=== PATIENT | female | born 1975 | race Caucasian/White ===

== ENCOUNTER 2021-12-20 23:36 | Emergency (ER) | payer MEDICAID ==
[~2021-12-20] VITALS: Ht 167.6 cm; Wt 104.3 kg
[2021-12-20] MEDS ORDERED: OMEPRAZOLE20 MG (23:50)
[2021-12-20] MEDS ORDERED: HYDROCHLOROTH12.5 M1 (23:50)
[2021-12-20] MEDS ORDERED: LEVOTHYROXINE13 MCG (23:51)
[2021-12-20] MEDS ORDERED: NAPROXEN250 MG (23:51)
[2021-12-20] MEDS ORDERED: SIMVASTATIN10 MG (23:51)
[2021-12-20] MEDS ORDERED: LOMAIRA8 MG (23:51)
[2021-12-20] MEDS ORDERED: HYDROXYZINE HCL25 MG (23:51)
[2021-12-21] MEDS ORDERED: ULTRAM50 MG PO (00:24)
--- OUTSIDE RECORDS SUMMARY | 2021-12-21 00:42 | XMS ---
PreManage Notification: GALLITO SLATER Security Prekindergarten Teacher Events No recent Security Events currently on file CRITERIA MET - [place] CARE PROVIDERS [facility] Current PHONE: Unknown [facility] [place] INTERNAL PHONE: Unknown STEFFANY CEDENO Flight Surveyor/Dry Chain Puller Current [facility] CARE TEAM PHONE: Unknown Kristen has no Care Guidelines for this patient. E.D. VISIT COUNT (12 MO.) [address] [facility] [address] [place] [address] KASSY Mejia TOTAL 3 NOTE: Visits indicate total known visits. ED/UCC VISIT TRACKING (12 MO.) 12/20/2021 23:38 [facility] [place] TYPE: Emergency COMPLAINT: - ARM INJURY 05/17/2021 16:19 [facility] [place] TYPE: Emergency DIAGNOSES: - Fatigue - Unspecified abdominal pain - Headache (Adult - Recurrent Or Known Dx Migraines) - Viral intestinal infection, unspecified - Migraine, unspecified, not intractable, with status migrainosus - Dizziness 05/13/2021 10:11 [facility] [place] TYPE: Emergency COMPLAINT: - Unspecified abdominal pain DIAGNOSES: 1. Unspecified abdominal pain 2. Anxiety disorder, unspecified 3. Allergy status to sulfonamides 4. Allergy status to other antibiotic agents 5. Radiographic dye allergy status INPATIENT VISIT TRACKING (12 MO.) No inpatient visits to display in this time frame [email or web address]
== END 2021-12-21 00:50 | disposition home or self-care (01) ==
LOC: ED 23:36
DX: S63.92XA Sprain of unspecified part of left wrist and hand, initial encounter (principal); X58.XXXA Exposure to other specified factors, initial encounter; E78.00 Pure hypercholesterolemia, unspecified; E03.9 Hypothyroidism, unspecified; I10 Essential (primary) hypertension; Z88.2 Allergy status to sulfonamides; Z88.0 Allergy status to penicillin; Z88.1 Allergy status to other antibiotic agents; Z91.041 Radiographic dye allergy status; Z79.899 Other long term (current) drug therapy
CPT/HCPCS: 73130; 96372; 99283-25; A9270; J1885

== ENCOUNTER 2022-12-17 18:58 | Emergency (ER) | payer MEDICAID ==
[~2022-12-17] VITALS: Ht 167.6 cm; Wt 104.3 kg
[~2022-12-17 18:58] MED LIST: HYDROCHLOROTH12.5 M1; HYDROXYZINE HCL25 MG; LEVOTHYROXINE13 MCG; LOMAIRA8 MG; NAPROXEN250 MG; OMEPRAZOLE20 MG; SIMVASTATIN10 MG; ULTRAM50 MG PO
--- OUTSIDE RECORDS SUMMARY | 2022-12-17 19:03 | XMS ---
PreManage Notification: GALLITO SLATER Security Bulk Picker Events No recent Security Events currently on file CRITERIA MET - PDMP CARE PROVIDERS GRETCHEN MENDOSA [facility] Current PHONE: Unknown [facility] [place] INTER[facility] PHONE: [phone] STEFFANY CEDENO Balloon Tester/Robotic Machine Operator Current [facility] CARE TEAM PHONE: Unknown Kristen has no Care Guidelines for this patient. E.D. VISIT COUNT (12 MO.) 1 [facility] 1 [facility] 2 KASSY Mejia TOTAL 4 NOTE: Visits indicate total known visits. ED/UCC VISIT TRACKING (12 MO.) 12/17/2022 19:00 [facility] [place] TYPE: Emergency COMPLAINT: - N/V 10/17/2022 17:59 [facility] [place] TYPE: Emergency DIAGNOSES: - Other specified postprocedural states - Pain in right shoulder - Radiculopathy, cervical region - Neck Pain - Post-op Problem 04/25/2022 12:24 [facility] [place] TYPE: Emergency COMPLAINT: - Cough, unspecified - Shortness of breath - Other chest pain DIAGNOSES: 1. Acute bronchospasm 2. Hemoptysis 3. Contact with and (suspected) exposure to COVID-19 4. Hypothyroidism, unspecified 12/20/2021 23:[address] [facility] [place] TYPE: Emergency COMPLAINT: - ARM INJURY DIAGNOSES: - Allergy status to other antibiotic agents - Allergy status to penicillin - Allergy status to sulfonamides - Essential (primary) hypertension - Exposure to other specified factors, initial encounter - Hypothyroidism, unspecified - Other mcfp (current) drug therapy - Pure hypercholesterolemia, unspecified - Radiographic dye allergy status - Sprain of unspecified part of left wrist and hand, initial encounter INPATIENT VISIT TRACKING (12 MO.) No inpatient visits to display in this time frame [email or web address]
[2022-12-17] MEDS ORDERED: METHOCARBAMOL750 MG PO (20:19)
[2022-12-17] MEDS ORDERED: PRAVASTATIN SOD20 MG PO (20:19)
[2022-12-18 00:04] VITALS: BP 157/110
== END 2022-12-18 00:05 | disposition home or self-care (01) ==
LOC: ED 18:58
DX: K52.9 Noninfective gastroenteritis and colitis, unspecified (principal); I10 Essential (primary) hypertension; E03.9 Hypothyroidism, unspecified; Z88.1 Allergy status to other antibiotic agents; Z91.041 Radiographic dye allergy status; Z88.0 Allergy status to penicillin; Z88.2 Allergy status to sulfonamides; Z88.8 Allergy status to other drugs, medicaments and biological substances; Z91.048 Other nonmedicinal substance allergy status; Z79.899 Other long term (current) drug therapy
CPT/HCPCS: 36415; 80053; 81003; 83690; 85025; 96361; 96374; 96375; 99284-25; A9270; G0480; J1790; J1885; J2405; J7121